=== PATIENT | female | born 1975 ===

== ENCOUNTER 2019-04-05 17:36 | Emergency (ER) | payer SELFPAY ==
[2019-04-05 17:45] VITALS: BP 119/83
== END 2019-04-05 18:40 | disposition left against medical advice (07) ==
LOC: ED 17:36
DX: S00.521A Blister (nonthermal) of lip, initial encounter (principal); W01.198A Fall on same level from slipping, tripping and stumbling with subsequent striking against other object, initial encounter; Y93.89 Activity, other specified; Y92.89 Other specified places as the place of occurrence of the external cause; Y99.8 Other external cause status; Z53.21 Procedure and treatment not carried out due to patient leaving prior to being seen by health care provider